=== PATIENT | female | born 1995 | race American Indian/Alaskan Native ===

== ENCOUNTER 2017-01-13 19:19 | Emergency (ER) | payer SELFPAY ==
--- NOTE | 2017-01-13 22:10 | Emergency Department Report ---
ED Headache HPI - General Chief Complaint: Headache Stated Complaint: FEVER/HEADACHE X 4 DAYS Time Seen by Provider: 01/13/17 21:55 Source: patient - History of Present Illness Initial Comments: 21-year-old female with a history of migraines who presents to the ED complaining of frontal and occipital region throbbing/aching, intermittent, 6 out of 10 in intensity headache for the past 2-3 days. Patient states she is taking Tylenol with no relief. Patient states some nasal congestion as well. She states light aggrecvates the head pain She denies cough/fever/runny nose/dizziness/headache/blurred vision. Quality: moderate, pressure, throbbing Head Injury Location: frontal, occipital Recent Head Trauma: no recent headache/trauma, chronic headaches Associated Symptoms: fever/chills, nausea/vomiting. denies: loss of consciousness, rash, vision changes Allergies/Adverse Reactions: Allergies No Known Allergies Allergy (Verified 01/13/17 19:37) Home Medications: Ambulatory Orders Amoxicillin [Trimox CAP] 500 mg PO BID #14 capsule 01/13/17 Ibuprofen [Motrin 800 MG tab] 800 mg PO Q8H #30 tablet 01/13/17 Prochlorperazine [Compazine] 10 mg PO Q8HR #20 tablet 01/13/17 ED Review of Systems ROS: Stated complaint: FEVER/HEADACHE X 4 DAYS Other details as noted in HPI Constitutional: denies: chills, fever Eyes: denies: eye pain, eye discharge, vision change ENT: denies: ear pain, throat pain Respiratory: denies: cough, shortness of breath, wheezing Cardiovascular: denies: chest pain, palpitations Endocrine: no symptoms reported Gastrointestinal: denies: abdominal pain, nausea, diarrhea Genitourinary: denies: urgency, dysuria, discharge Musculoskeletal: denies: back pain, joint swelling, arthralgia Skin: denies: rash, lesions Neurological: denies: headache, weakness, paresthesias Psychiatric: denies: anxiety, depression Hematological/Lymphatic: denies: easy bleeding, easy bruising ED Past Medical Hx - Past Medical History Previous Medical History?: Yes Additional medical history: Migraines - Surgical History Past Surgical History?: No Additional Surgical History: overweight - Social History Smoking Status: Current Every Day Smoker Substance Use Type: None - Medications Home Medications: Home Medications Medication Instructions Recorded Confirmed Last Taken Type Amoxicillin [Trimox CAP] 500 mg PO BID #14 capsule 01/13/17 Unknown Rx Ibuprofen [Motrin 800 MG tab] 800 mg PO Q8H #30 tablet 01/13/17 Unknown Rx Prochlorperazine [Compazine] 10 mg PO Q8HR #20 tablet 01/13/17 Unknown Rx ED Physical Exam - General Limitations: No Limitations General appearance: alert, in no apparent distress - Head Head exam: Present: atraumatic, normocephalic - Eye Eye exam: Present: normal appearance - ENT ENT exam: Present: mucous membranes moist - Neck Neck exam: Present: normal inspection - Respiratory Respiratory exam: Present: normal lung sounds bilaterally. Absent: respiratory distress, wheezes, rales, rhonchi - Cardiovascular Cardiovascular Exam: Present: regular rate, normal rhythm. Absent: systolic murmur, diastolic murmur, rubs, gallop - GI/Abdominal GI/Abdominal exam: Present: soft, normal bowel sounds - Extremities Exam Extremities exam: Present: normal inspection - Back Exam Back exam: Present: normal inspection - Neurological Exam Neurological exam: Present: alert, oriented X3, CN II-XII intact, normal gait - Expanded Neurological Exam Expanded Patient oriented to: Present: person, place, time Speech: Present: fluid speech Cranial nerves: EOM's Intact: Normal, Facial Sensation: Normal Cerebellar function: Finger to Nose: Normal Sensory exam: Upper Extremity Light Touch: Normal, Upper Extremity Temperature: Normal, Lower Extremity Light Touch: Normal, Lower Extremity Temperature: Normal Motor strength exam: RUE: 5, LUE: 5, RLE: 5, LLE: 5 DTR: knee (R): 2+, knee (L): 2+ Best Eye Response ([place]): (4) open spontaneously Best Motor Response (Bro[place]): (6) obeys commands Best Verbal Response (Brody): (5) oriented Brody Total: 15 - Psychiatric Psychiatric exam: Present: normal affect, normal mood - Skin Skin exam: Present: warm, dry, intact, normal color. Absent: rash ED Course Vital Signs 01/13/17 01/13/17 19:37 22:41 Temperature 99.2 F Pulse Rate 93 H 88 Respiratory 20 16 Rate Blood Pressure 136/80 138/76 [Right] O2 Sat by Pulse 100 100 Oximetry ED Medical Decision Making - Medical Decision Making 21-year-old female presents with frontal sinusitis ED course: Patient received Motrin, Zofran, amoxicillin. Discussed the patient on medication antibiotics for the next 7 days. Discussed the medication as described for pain. Discussed to follow up with primary care physician as referred. Discussed divorce symptoms and his symptoms arise to return to ED. She has known neuro deficits she is alert and oriented 3 shortness of instructions given Vital signs are normal she is in no acute distress Critical care attestation.: If time is entered above; I have spent that time in minutes in the direct care of this critically ill patient, excluding procedure time. ED Disposition Clinical Impression: Sinusitis, acute frontal Qualifiers: Recurrence: recurrent Qualified Code(s): J01.11 - Acute recurrent frontal sinusitis Disposition: TO HOME OR SELFCARE Is pt being admited?: No Does the pt Need Aspirin: No Condition: Stable Instructions: Sinusitis (ED), Migraine Headache (ED), Tension Headache (ED), Acute Headache (ED) Prescriptions: Amoxicillin [Trimox CAP] 500 mg PO BID #14 capsule Ibuprofen [Motrin 800 MG tab] 800 mg PO Q8H #30 tablet Prochlorperazine [Compazine] 10 mg PO Q8HR #20 tablet Referrals: PRIMARY CARE, [Primary Care Provider] - 3-5 Days NII BORGES MD [Staff Physician] - 3-5 Days [facility] [place] [Outside] - 3-5 Days [facility] [Outside] - 3-5 Days Forms: Accompanied Note, Work/School Release Form(ED) Time of Disposition: 22:31
[2017-01-13] MEDS ORDERED: ZOFRAN ODT PO ONE (22:20)
[2017-01-13] MEDS ORDERED: TRIMOX PO ONE (22:20)
[2017-01-13] MEDS ORDERED: MOTRIN PO ONE (22:22)
[2017-01-13 22:42] VITALS: BP 138/76
== END 2017-01-13 22:41 | disposition home or self-care (01) ==
LOC: ED 19:19
DX: J01.10 Acute frontal sinusitis, unspecified (principal); G43.909 Migraine, unspecified, not intractable, without status migrainosus; F17.210 Nicotine dependence, cigarettes, uncomplicated
CPT/HCPCS: 99282; Q0162